=== PATIENT | male | born 1960 | race Caucasian/White ===

== ENCOUNTER 2018-05-03 07:34 | Day surgery (SDC) | payer BC ==
[~2018-05-03 07:34] MED LIST: Phenylephrine 2.5% Ophth Soln 2 ML Bot EYELF SCH; Tropicamide 1% Ophth Soln 3 ML Bottle EYELF SCH
[2018-05-03] MEDS: Polymyxin B/Trimethoprim 10 ML Bottle EYELF SCH ×4 (07:47→09:33)
[2018-05-03] MEDS: Brimonidine 0.2% Ophth Soln 5 ML Bottle EYELF SCH ×4 (07:54→09:33)
[2018-05-03] MEDS: Phenylephrine 2.5% Ophth Soln 15 ML Bot EYELF SCH ×6 (07:55→09:11)
[2018-05-03] MEDS: Tetracaine HCl/PF 0.5% 4 ML Bottle EYELF SCH ×3 (07:55→09:18)
[2018-05-03] MEDS: Lidocaine 1% PF 2 ML SDV INJECT SCH ×2 (07:55→09:18)
[2018-05-03] MEDS: Pilocarpine 4% Ophth Soln 15 ML Bot EYELF SCH ×2 (07:56→09:33)
[2018-05-03] MEDS: Cefuroxime 10 MG/ML SYRINGE EYELF SCH ×2 (07:56→09:32)
--- NOTE | 2018-05-03 08:06 | PCM.PREANE ---
Preanesthetic Assessment - Anesthesia/Transfusion/Family Hx Anesthesia History: Prior Anesthesia Without Reaction Family History of Anesthesia Reaction: No - Review of Systems General: No Symptoms Pulmonary: Cough, Sputum, Other (Smoker, cought mostly in the morning. Unchanged. ) Cardiovascular: Other (Hypertension) Gastrointestinal: No Symptoms Neurological: No Symptoms Other: Reports: None - Physical Assessment NPO Status Date: 05/02/18 NPO Status Time: 23:00 O2 Sat by Pulse Oximetry: 95 Respiratory Rate: 20 Vital Signs: Last Vital Signs Temp 36.7 C 05/03/18 07:40 Pulse 57 L 05/03/18 07:40 Resp 20 05/03/18 07:40 BP 112/66 05/03/18 07:40 Pulse Ox 95 05/03/18 07:40 Weight: 83.915 kg ASA Class: 2 Mental Status: Alert & Oriented x3 Airway Class: Mallampati = 2 Dentition: Reports: Normal Dentition Thyro-Mental Finger Breadths: 3 Mouth Opening Finger Breadths: 3 ROM/Head Extension: Full Lungs: Clear to Auscultation, Normal Respiratory Effort Cardiovascular: Regular Rate, Regular Rhythm, Bradycardia - Allergies Allergies/Adverse Reactions: Allergies Allergy/AdvReac Type Severity Reaction Status Date / Time No Known Allergies Allergy Verified 05/01/18 09:34 - Anesthesia Plan Beta Kitty: Metoprolol Med Last Dose Date: 05/02/18 Med Last Dose Time: 18:00 - Acknowledgements Anesthesia Type Planned: MAC Pt an Appropriate Candidate for the Planned Anesthesia: Yes Alternatives and Risks of Anesthesia Discussed w Pt/Guardian: Yes Pt/Guardian Understands and Agrees with Anesthesia Plan: Yes PreAnesthesia Questionnaire - HOME MEDS Home Medications: Home Meds Ezetimibe 10 mg PO DAILY 05/02/18 [History] Metoprolol Succinate 100 mg PO DAILY 05/02/18 [History] atorvaSTATin Calcium [Atorvastatin Calcium] 20 mg PO DAILY 05/02/18 [History] - CURRENT (IN HOUSE) MEDS Current Meds: Current Medications Brimonidine Tartrate (Alphagan 0.2% Ophth Soln) 0 ml EYELF ASDIRECTED DENISSE Stop: 05/03/18 18:00 Last Admin: 05/03/18 07:56 Dose: 1 ml Cefuroxime Sodium (Zinacef) 0 mg EYELF ASDIRECTED DENISSE Stop: 05/03/18 18:00 Last Admin: 05/03/18 07:56 Dose: 1 mg Lidocaine HCl (Xylocaine-Mpf 1%) 0 ml INJECT ASDIRECTED DENISSE Stop: 05/03/18 18:00 Last Admin: 05/03/18 07:55 Dose: 1 ml Phenylephrine HCl (Alex-Synephrine 2.5% Ophth Soln) 0 ml EYELF ASDIRECTED DENISSE Stop: 05/03/18 18:00 Last Admin: 05/03/18 08:01 Dose: 1 drop Pilocarpine HCl (Pilocar 4% Ophth Soln) 0 ml EYELF ASDIRECTED DENISSE Stop: 05/03/18 18:00 Last Admin: 05/03/18 07:56 Dose: 1 ml Polymyxin/Trimethoprim Sulfate (Polytrim Ophth Soln) 0 ml EYELF ASDIRECTED DENISSE Stop: 05/03/18 18:00 Last Admin: 05/03/18 07:56 Dose: 1 ml Tetracaine HCl (Tetracaine 0.5% Steri-Unit Idania) 0 ml EYELF ASDIRECTED DENISSE Stop: 05/03/18 18:00 Last Admin: 05/03/18 07:55 Dose: 1 ml Tropicamide (Mydriacyl 1% Ophth Soln) 0 ml EYELF ASDIRECTED DENISSE Stop: 05/03/18 18:00 Discontinued Medications Phenylephrine HCl (Alex-Synephrine 2.5% Ophth Soln) 0 ml EYELF ASDIRECTED DENISSE Stop: 05/03/18 18:00 Tropicamide (Mydriacyl 1% Ophth Soln) 0 ml EYELF ASDIRECTED DENISSE Stop: 05/03/18 18:00
[2018-05-03] MEDS: Tropicamide 1% Ophth Soln 15 ML Bottle EYELF SCH ×4 (08:07→08:36)
--- NOTE | 2018-05-03 09:39 | PCM48HPAN ---
Post Anesthesia Note - EVALUATION WITHIN 48HRS OF ANESTHETIC Vital Signs in Normal Range: Yes Patient Participated in Evaluation: Yes Respiratory Function Stable: Yes Airway Patent: Yes Cardiovascular Function Stable: Yes Hydration Status Stable: Yes Pain Control Satisfactory: Yes Nausea and Vomiting Control Satisfactory: Yes Mental Status Recovered: Yes
== END 2018-05-03 09:44 | disposition home or self-care (01) ==
LOC: JD.SDS 07:34
PROVIDERS: ATTEND Ophthalmology
DX: H25.812 Combined forms of age-related cataract, left eye (principal); H16.223 Keratoconjunctivitis sicca, not specified as Sjogren's, bilateral; H02.834 Dermatochalasis of left upper eyelid; H02.831 Dermatochalasis of right upper eyelid; H21.81 Floppy iris syndrome; E78.00 Pure hypercholesterolemia, unspecified; I10 Essential (primary) hypertension; F17.200 Nicotine dependence, unspecified, uncomplicated; Z79.899 Other long term (current) drug therapy; Z98.41 Cataract extraction status, right eye; Z96.1 Presence of intraocular lens; Z83.518 Family history of other specified eye disorder
CPT/HCPCS: 66982; C1780; J0697; A9270-GY; J2001

== ENCOUNTER 2024-06-10 13:50 | Emergency (ER) | payer MEDICARE, OTHER ==
[2024-06-10 14:33] LABS: BASOPHILS PERCENT AUTO 0.4 % (0.0-1.0); EOSINOPHILS ABSOLUTE AUTO 0.1 K/mm3 (0.0-0.4); EOSINOPHILS PERCENT AUTO 1.6 % (0.0-6.0); HEMOGLOBIN 16.9 gm/dl (14.0-18.0); IMMATURE GRAN ABSOLUTE AUTO 0.02 K/mm3 (0.00-0.05); IMMATURE GRAN PERCENT AUTO 0.3 % (0.0-0.4); LYMPHOCYTES ABSOLUTE AUTO 2.1 K/mm3 (1.0-4.8); LYMPHOCYTES PERCENT AUTO 26.9 % (24.0-44.0); MEAN CORPUSCULAR HGB CONC 33.1 g/dl (32.0-36.0); MEAN CORPUSCULAR VOLUME 96.6 fl (83.0-99.0); MEAN PLATELET VOLUME 11.2 fl (9.4-12.4); MONOCYTES ABSOLUTE AUTO 0.7 K/mm3 (0.0-0.8); MONOCYTES PERCENT AUTO 8.8 % (0.0-8.0); NEUTROPHILS ABSOLUTE AUTO 4.8 K/mm3 (1.8-7.7); PLATELET COUNT,PLT 187 K/mm3 (150-400); RED BLOOD CELL COUNT 5.28 M/mm3 (4.52-5.90); WHITE BLOOD CELL COUNT,WBC 7.69 K/mm3 (3.9-11.3)
[2024-06-10] MEDS: Sodium Chloride 0.9% 1,000 ML IV SCH (14:42)
[2024-06-10] MEDS: Sodium Chloride 0.9% 10 ML Syringe FLUSH PRN (14:43)
[2024-06-10 14:49] LABS: A/G RATIO 1.3 (1-2); ALBUMIN 4.1 g/dl (3.4-5.0); ANION GAP 13.6 (5-15); BILIRUBIN TOTAL 1.1 mg/dL (0.2-1.0); CALCIUM 9.3 mg/dL (8.5-10.1); EST CRCL DRUG DOSING (CG) 71.25 mL/min; MAGNESIUM 1.6 mg/dL (1.8-2.4); POTASSIUM,K 4.6 mEq/L (3.5-5.1); PROTEIN TOTAL,TP 7.2 g/dl (6.4-8.2)
[2024-06-10] MEDS: Atropine 0.4 MG/ML SDV IVPUSH ONE (14:50)
[2024-06-10] MEDS ORDERED: Atropine 0.4 MG/ML SDV ONE (14:54)
[2024-06-10] MEDS: Magnesium Sulfate/Water Premix 2 GM/50 ML BAG IV ONE (15:15)
[2024-06-10] MEDS ORDERED: Magnesium Sulfate/Water Premix 2 GM/50 ML BAG IV SCH (15:15)
== END 2024-06-10 21:45 ==
LOC: JD.ED 13:50
DX: I44.2 Atrioventricular block, complete (principal); E78.00 Pure hypercholesterolemia, unspecified; I10 Essential (primary) hypertension; F17.210 Nicotine dependence, cigarettes, uncomplicated; Z79.899 Other long term (current) drug therapy
CPT/HCPCS: 36415; 71045; 80053; 83735; 84484; 85025; 93005; 96361; 96365; 96366; 96375; 99285; J0461; J3475; J3490; J7030